=== PATIENT | male | born 2000 | race Caucasian/White ===

== ENCOUNTER 2021-06-13 03:38 | Observation (INO) ==
[2021-06-13] MEDS ORDERED: SODIUM CHLORIDE 0.9% 1000ML 1,000 ML IV ONE (04:03)
--- NOTE | 2021-06-13 04:08 | Emergency Department Note ---
Impression & Plan SSRI overdose, Suicide attempt, Alcohol intoxication ED Provider Note Name: IBRAHIMA EVANS Age: 20 Sex: M Arrives Via: Ambulance Informant: Patient, EMS ED Provider: Piyush Culp MD Chief Complaint: Suicide attempt Impression: Suicide Attempt SSRI Overdose Alcohol Intoxication Medical Decision Makin yr old male with history of depression. Patient with breakup this evening, intoxication and then attempted suicide with SSRI overdose (handful of Zoloft) early this morning. Had told friends farzad who came to his room and tried making him throw up. He sent [employer] texts to his father apparently as well. Workup unremarkable and on secured entrance monitor without issues. Given overdose and inability to medically clear a this time, hospitalist consulted for further management and monitoring. Prior Medical Record and Triage/Nursing Notes reviewed by Me Differentials:Mood disorder, infection, hypoglycemia, electrolyte abnormalities, cardiac sources, intracerebral event, toxicologic, trauma, neurologic, as well as other pathologies. Vital Signs: reviewed and remarkable for no significant abnormalities Interventions: NSS bolus Labs:Reviewed and remarkable for no significant abnormalities EKG:Per My Interpretation: Indication Overdose: NSR 75 bpm, qtc 393, qrs 92. No Ectopy. No Ischemia. No previous for comparison Cardiac/Tele Monitoring: Cardiac Monitoring: An Order was placed for continuous cardiac monitoring. The monitor shows a rate of 70 with a normal sinus rhythm. Consults:Dr Jimi PHILLIPS Hospitalist Plan: Disposition:Hospitalization. Condition: Good History of Present Illness:20 yr old male arrives for evaluation following an overdose. Admits he was feeling sad/depressed this evening after girlfriend broke up with him. He was drinking alcohol and at 2 am he took an entire bottle of his Zoloft. Notes there were enough pills to fill a pile in his hand. Denies other medications taken that he was aware of. Notes his roommates made him try throwing up. States he currently feels sleepy. Denies abdominal pain, chest pain, sob, palpitations, nor other symptoms. States he wanted to kill himself. Denies having thought like that previously. Denies previous suicide attempts nor psychiatric hospitalizations. He has a history of depression. Denies drug use. ROS: See above HPI for pertinent positives & negatives. A total of 10 systems reviewed and were otherwise negative. Past Medical History:Depression Past Surgical History:Appendectomy Family History:Father with Bipolar Social History:[employer] [facility] [employer], [employer], Occasional etoh, no drugs, no tobacco Home Medications:Zoloft Allergies:none Vitals:Blood Pressure: 104/76, Pulse 104, RR 20, T 36.8C, O2 95% on RA Physical Exam: GENERAL: Patient is sad/depressed appearing and in mild distress. Crying EYES: No scleral icterus, unremarkable pupils. ENT: Mucous membranes moist, no nasal congestion. NECK: No masses appreciated, nomeningismus, trachea is midline. RESPIRATORY: No dyspnea. Clear to auscultation and equal bilaterally. No wheeze, no rhonchi. CARDIOVASCULAR: Regular rate and rhythm.No murmurs, rubs, gallops appreciated. GASTROINTESTINAL: Abdomen soft, non-tender, no peritonitis.Bowel sounds positive.No masses appreciated. BACK: No midline tenderness, no CVA tenderness EXTREMITIES: Normal motion all extremities, no cyanosis, no edema. NEUROLOGIC: Mildly intoxicated, Alert and oriented, no acute motor or sensory deficits, no focal weakness, cranial nerves grossly intact. SKIN: No rash, no jaundice, no diaphoresis. PSYCH: sad, depressed, admits suicidal ideation and attempt GCS: 15 ED Course: Times/Reassessments: Stable, cardiac rhythm normal Piyush Culp MD Past Med/Surg History Social History Smoking Status: Never smoker Feels Safe at Home: No Home Meds Home Medications Medication Instructions Recorded Confirmed sertraline 50 mg tablet 50 mg PO DAILY 06/13/21 06/13/21 Results & Data (ED) Vital Signs Vital Signs - 24 hr 06/13/21 04:03 06/13/21 04:33 06/13/21 04:44 Temperature 36.8 C Temperature Source Oral Pulse Rate 71 Pulse Rate [Apical] Pulse Rhythm Regular Pulse Strength Normal Respiratory Rate 16 16 Respiratory Effort / Characteristics Non-Labored Spontaneous Non-Labored Spontaneous Respiratory Depth Normal Normal Respiratory Pattern Blood Pressure 135/79 Blood Pressure [Left Arm] Blood Pressure Mean 97 Blood Pressure Mean [Left Arm] Pulse Oximetry 98 96 98 Oxygen Delivery Method Room Air Room Air Room Air Sepsis Recent Fever Within 48 Hours No Sepsis New/Unexplained Change in Mental Status No Sepsis Action Taken by Nursing No Action Required 06/13/21 06:48 06/13/21 07:35 Temperature Temperature Source Pulse Rate Pulse Rate [Apical] 71 104 H Pulse Rhythm Pulse Strength Respiratory Rate 14 20 Respiratory Effort / Characteristics Non-Labored Spontaneous Non-Labored Spontaneous Respiratory Depth Normal Normal Respiratory Pattern Regular Blood Pressure Blood Pressure [Left Arm] 103/54 L 104/76 Blood Pressure Mean Blood Pressure Mean [Left Arm] 70 85 Pulse Oximetry 94 95 Oxygen Delivery Method Room Air Room Air Sepsis Recent Fever Within 48 Hours Sepsis New/Unexplained Change in Mental Status Sepsis Action Taken by Nursing Laboratory Data Result diagrams: 06/13/21 04:31 06/13/21 04:31 Lab Results 06/13/21 06/13/21 06/13/21 Range/Units 04:15 04:15 04:31 WBC 6.82 (4.8-10.8) K/uL RBC 4.57 L (4.7-6.1) M/uL Hgb 13.7 L (14.0-18.0) g/dL Hct 40.1 L (42-52) % MCV 87.7 (80-100) fL MCH 30.0 (25-34) pg MCHC 34.2 (32-36) g/dL RDW Std Deviation 41.5 (36.4-46.3) fL RDW Coeff of Yanira 13.0 (11.5-14.5) % Plt Count 301 (130-400) K/uL MPV 9.3 (7.4-10.4) fL Immature Gran % (Auto) 0.1 % Neut % (Auto) 71.2 % Lymph % (Auto) 21.4 % [place] % (Auto) 6.0 % Eos % (Auto) 1.2 % Baso % (Auto) 0.1 % Neut # (Auto) 4.85 (1.4-6.5) K/uL Lymph # (Auto) 1.46 (1.2-3.4) K/uL [place] # (Auto) 0.41 (0.11-0.59) K/uL Eos # (Auto) 0.08 (0-0.5) K/uL Baso # (Auto) 0.01 (0-0.2) K/uL Immature Gran # (Auto) 0.01 (0.00-0.02) K/uL Sodium (136-145) mmol/L Potassium (3.5-5.1) mmol/L Chloride (98-107) mmol/L Carbon Dioxide (21-32) mmol/L Anion Gap (3-11) BUN (7-18) mg/dl Creatinine (0.6-1.4) mg/dl Est Cr Clr Drug Dosing Est GFR ( Amer) ml/min Est GFR (Non-Af Amer) ml/min BUN/Creatinine Ratio (10-20) Glucose (70-99) mg/dl Calcium (8.5-10.1) mg/dl Magnesium (1.8-2.4) mg/dl Total Bilirubin (0.2-1) mg/dl AST (15-37) U/L ALT (12-78) U/L Alkaline Phosphatase (45-117) U/L Total Protein (6.4-8.2) gm/dl Albumin (3.4-5.0) gm/dl Globulin (2.5-4.0) gm/dl Albumin/Globulin Ratio (0.9-2) TSH (0.300-4.500) uIu/ml Salicylates (2.8-20) mg/dl Acetaminophen (10-30) ug/ml Ethyl Alcohol mg/dL (0-3) mg/dl COVID-19 Eval Order Covid19 at [facility] SARS-CoV-2 (PCR) NEGATIVE (Negative) 06/13/21 06/13/21 06/13/21 Range/Units 04:31 04:31 04:31 WBC (4.8-10.8) K/uL RBC (4.7-6.1) M/uL Hgb (14.0-18.0) g/dL Hct (42-52) % MCV (80-100) fL MCH (25-34) pg MCHC (32-36) g/dL RDW Std Deviation (36.4-46.3) fL RDW Coeff of Yanira (11.5-14.5) % Plt Count (130-400) K/uL MPV (7.4-10.4) fL Immature Gran % (Auto) % Neut % (Auto) % Lymph % (Auto) % [place] % (Auto) % Eos % (Auto) % Baso % (Auto) % Neut # (Auto) (1.4-6.5) K/uL Lymph # (Auto) (1.2-3.4) K/uL [place] # (Auto) (0.11-0.59) K/uL Eos # (Auto) (0-0.5) K/uL Baso # (Auto) (0-0.2) K/uL Immature Gran # (Auto) (0.00-0.02) K/uL Sodium 141 (136-145) mmol/L Potassium 3.5 (3.5-5.1) mmol/L Chloride 108 H (98-107) mmol/L Carbon Dioxide 28 (21-32) mmol/L Anion Gap 5.0 (3-11) BUN 9 (7-18) mg/dl Creatinine 0.78 (0.6-1.4) mg/dl Est Cr Clr Drug Dosing Not Reportable Est GFR ( Amer) > 150.0 ml/min Est GFR (Non-Af Amer) 129.9 ml/min BUN/Creatinine Ratio 11.2 (10-20) Glucose 100 H (70-99) mg/dl Calcium 8.5 (8.5-10.1) mg/dl Magnesium 1.8 (1.8-2.4) mg/dl Total Bilirubin 0.3 (0.2-1) mg/dl AST 16 (15-37) U/L ALT 20 (12-78) U/L Alkaline Phosphatase 69 (45-117) U/L Total Protein 7.3 (6.4-8.2) gm/dl Albumin 3.6 (3.4-5.0) gm/dl Globulin 3.7 (2.5-4.0) gm/dl Albumin/Globulin Ratio 1.0 (0.9-2) TSH 1.100 (0.300-4.500) uIu/ml Salicylates < 1.7 L (2.8-20) mg/dl Acetaminophen < 2 L (10-30) ug/ml Ethyl Alcohol mg/dL 118.0 H (0-3) mg/dl COVID-19 Eval Order SARS-CoV-2 (PCR) (Negative) Administered Medications Discontinued Medications Sodium Chloride (Nss 1000ml) 1,000 mls @ 999 mls/hr IV .Q1H1M ONE Stop: 06/13/21 05:03 Last Infusion: 06/13/21 05:19 Dose: 0 mls/hr Documented by: [id number] Admin: 06/13/21 04:16 Dose: 999 mls/hr Documented by: [id number] Discharge Plan Visit Data Chief Complaint: Overdose (Intentional) Stated Complaint: OVERDOSE ED Provider: Piyush Culp Discharge Problem: SSRI overdose, Suicide attempt, Alcohol intoxication Forms Stand Alone Forms: [facility], Suicide Prevention Resources Prescriptions Prescriptions: No Action sertraline 50 mg Tablet 50 mg PO DAILY RF: 0 Referrals Referrals: PCP,NO [Primary Care Provider] - Discharge Problem: SSRI overdose Qualifiers: Encounter type: initial encounter Injury intent: intentional self-harm Qualified Code(s): T43.222A - Poisoning by selective serotonin reuptake inhibitors, intentional self-harm, initial encounter Alcohol intoxication Qualifiers: Complication of substance-induced condition: uncomplicated Qualified Code(s): F10.920 - Alcohol use, unspecified with intoxication, uncomplicated
[2021-06-13 04:58] LABS: Basophils # (auto) 0.01 K/uL (0-0.2); Basophils % (auto) 0.1 %; Eosinophils # (auto) 0.08 K/uL (0-0.5); Eosinophils % (auto) 1.2 %; Hematocrit (blood only) 40.1 % (42-52); Hemoglobin 13.7 g/dL (14.0-18.0); Immature Granulocytes # (auto) 0.01 K/uL (0.00-0.02); Immature Granulocytes % (auto) 0.1 %; Lymphocytes # (auto) 1.46 K/uL (1.2-3.4); Lymphocytes % (auto) 21.4 %; Mean Corpuscular Hgb Conc 34.2 g/dL (32-36); Mean Corpuscular Volume 87.7 fL (80-100); Mean Platelet Volume 9.3 fL (7.4-10.4); Monocytes # (auto) 0.41 K/uL (0.11-0.59); Neutrophils # (auto) 4.85 K/uL (1.4-6.5); Neutrophils % (auto) 71.2 %; Platelet Count 301 K/uL (130-400); RDW Standard Deviation 41.5 fL (36.4-46.3); Red Blood Count 4.57 M/uL (4.7-6.1); White Blood Count 6.82 K/uL (4.8-10.8)
[2021-06-13 05:22] LABS: Acetaminophen < 2 ug/ml (10-30); Salicylate < 1.7 mg/dl (2.8-20)
[2021-06-13 05:26] LABS: Alanine Aminotransferase 20 U/L (12-78); Albumin Level 3.6 gm/dl (3.4-5.0); Aspartate Aminotransferase 16 U/L (15-37); BUN Creatinine Ratio 11.2 (10-20); Blood Urea Nitrogen 9 mg/dl (7-18); Calcium 8.5 mg/dl (8.5-10.1); Carbon Dioxide 28 mmol/L (21-32); Chloride 108 mmol/L (98-107); Est GFR (African American) > 150.0 ml/min; Est GFR (Non-African American) 129.9 ml/min; Glucose 100 mg/dl (70-99); Magnesium 1.8 mg/dl (1.8-2.4); Potassium 3.5 mmol/L (3.5-5.1); Sodium 141 mmol/L (136-145)
[2021-06-13 05:37] LABS: Alkaline Phosphatase 69 U/L (45-117); Bilirubin,Total 0.3 mg/dl (0.2-1); Globulin 3.7 gm/dl (2.5-4.0); Total Protein 7.3 gm/dl (6.4-8.2)
[2021-06-13] MEDS ORDERED: ONDANSETRON INJ 2 MG/ML 2 ML VIAL IV PRN (09:04)
[2021-06-13] MEDS ORDERED: ACETAMINOPHEN 325 MG TAB PO PRN (09:04)
[2021-06-13] MEDS: SODIUM CHLORIDE 0.9% 1000ML 1,000 ML IV SCH ×2 (11:13→18:40)
--- NOTE | 2021-06-13 15:54 | History & Physical Report ---
Date of Service June 13, 2021 Assessment & Plan (1) SSRI overdose: Plan: took a "handful" of sertraline, unknown number of tablets, they are 50mg tablets vitals stable, labs stable will keep on med tele for 24 hours, NSS at 125cc/hr x 2 bags repeat CMP and CBC in the morning typically this type of overdose is well tolerated and he should be medically clear tomorrow (2) Suicide attempt: Plan: he admits he was trying to harm himself, he has regret, currently he is not suicidal consult psychiatry for their evaluation and recommendation discussed with him and his father that he will be observed on medicine service today and overnight psychiatry will determine if he is safe to go home with family or if he needs to stay under 302 he is cooperative and willing to see psychiatry father is very supportive (3) Alcohol intoxication: Plan: alcohol was 118 on admission, should be out of his system by now (4) Depression: Plan: medicated with Zoloft 50mg daily currently has been dealing with stressors of classes, relationship with girlfriend that he broke off Admission and Anticipated Discharge Date Admission Date: June 13, 2021 History of Present Illness Chief Complaint: I took a handful of Zoloft Primary Care Provider: Self, 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 He is prescribed 50mg a day for depression. He is not sure how much he took, just knows it was a handful, he does not think it was the entire bottle. He says that he has been under a great deal of stress the past two weeks. 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 He recently broke up with his girlfriend which has also been stressful. He admits to drinking alcohol last night, says he stopped drinking about 3-4 hours prior to when he took the sertraline. He says he took the sertraline in an attempt to hurt himself, admits he was briefly suicidal. Immediately after he took them he states he had regret and he told his frater nity brothers and he contacted his father. His friends got him to the hospital. He has been stable here in the ED. His vitals have been normal. CMP and CBC were unremarkable. Ethyl alcohol was 118, tylenol and salicylates were low. He was given NSS. Will need medical observation and psychiatry consult. Currently he says he does not have any suicidal thoughts. His father is at the bedside. He admits to drinking alcohol frequently, socially. He admits to smoking marijuana. He does not smoke cigarettes and does not vape. Allergies Allergy/AdvReac Type Severity Reaction Status Date / Time No Known Allergies Allergy Verified 06/13/21 11:43 Home Medications Medication Instructions Recorded Confirmed Type sertraline 50 mg tablet 50 mg PO DAILY 06/13/21 06/13/21 History Past Med/Surg History Medical History (Updated 06/13/21 @ 15:49 by Jonathan Krause DO) Depression Surgical History (Updated 06/13/21 @ 15:49 by Jonathan Krause DO) S/P appendectomy Family History (Updated 06/13/21 @ 15:50 by Jonathan Krause DO) Other Hypertension Social History Smoking Status: Never smoker Feels Safe at Home: No Review of Systems Review of Systems: All systems reviewed & are unremarkable except as noted in Subjective Constitutional: no fever, no chills, no sweats, no fatigue and no weakness Eyes: no blind spots and no eye pain Ear, Nose, Mouth, Throat: no ear pain, no hearing loss and no nasal congestion Respiratory: no cough and no dyspnea Cardiovascular: no chest pain, no lightheadedness, no syncope and no edema Gastrointestinal: + abdominal pain (discomfort, epigastric, cramping); no nausea, no vomiting, no constipation and no diarrhea/loose stools Genitourinary: no dysuria Neurologic: no unsteadiness, no falls and no numbness Psychiatric: + depression, + suicidal ideation (early this morning, none currently), + anxiety and + substance abuse (alcohol, marijuana); no homicidal ideation Physical Exam Physical Exam: General: well developed, well nourished, no acute distress, slightly disheveled Neck: supple, trachea midline, normal thyroid Lungs: clear to auscultation bilaterally, normal respiratory effort, no accessory muscle use, no distress Heart: regular S1 and S2, no murmur, peripheral pulses normal, capillary refill normal, no edema Abdomen: soft, NT, ND, + BS, no hepatomegaly, normal to percussion Extremities: normal in appearance, no cyanosis, no petechiae, strength is 5/5 bilaterally Neuro: awake, cooperative, moves all extremities, no focal motor deficits, CN II-XII intact, sensation in extremities intact, normal speech Skin: warm, dry, no rash, normal turgor Psych: Awake, alert oriented x 3, good eye contact, speech is normal, depressed mood, flat affect Results & Data Results & Data ([facility]) Vital Signs (Past 12 Hours) Vital Signs Temp Pulse Pulse Resp BP BP Pulse Ox 06/13/21 15:00 72 17 129/71 94 06/13/21 14:30 54 L 16 120/65 94 06/13/21 14:00 58 L 18 127/68 94 06/13/21 13:30 58 L 17 118/72 94 06/13/21 13:00 62 18 116/69 94 06/13/21 12:30 60 19 109/66 94 06/13/21 12:00 82 21 118/75 95 06/13/21 11:32 63 18 128/75 95 06/13/21 11:01 84 17 95 06/13/21 10:30 62 19 116/63 94 06/13/21 10:00 75 17 126/65 94 06/13/21 09:30 89 17 134/60 92 06/13/21 09:21 115/60 96 06/13/21 07:35 104 H 20 104/76 95 06/13/21 06:48 78 71 18 103/54 L 103/54 L 95 06/13/21 04:44 16 98 06/13/21 04:33 96 06/13/21 04:03 36.8 C 71 16 135/79 98 06/13/21 03:43 62 19 135/79 91 Laboratory Results Laboratory Results - last 24 hr 06/13/21 06/13/21 06/13/21 04:15 04:15 04:31 WBC 6.82 RBC 4.57 L Hgb 13.7 L Hct 40.1 L MCV 87.7 MCH 30.0 MCHC 34.2 RDW Std Deviation 41.5 RDW Coeff of Yanira 13.0 Plt Count 301 MPV 9.3 Immature Gran % (Auto) 0.1 Neut % (Auto) 71.2 Lymph % (Auto) 21.4 [place] % (Auto) 6.0 Eos % (Auto) 1.2 Baso % (Auto) 0.1 Neut # (Auto) 4.85 Lymph # (Auto) 1.46 [place] # (Auto) 0.41 Eos # (Auto) 0.08 Baso # (Auto) 0.01 Immature Gran # (Auto) 0.01 Sodium Potassium Chloride Carbon Dioxide Anion Gap BUN Creatinine Est Cr Clr Drug Dosing Est GFR ( Amer) Est GFR (Non-Af Amer) BUN/Creatinine Ratio Glucose Calcium Magnesium Total Bilirubin AST ALT Alkaline Phosphatase Total Protein Albumin Globulin Albumin/Globulin Ratio TSH Salicylates Acetaminophen Ethyl Alcohol mg/dL COVID-19 Eval Order Covid19 at [facility] SARS-CoV-2 (PCR) NEGATIVE 06/13/21 06/13/21 06/13/21 04:31 04:31 04:31 WBC RBC Hgb Hct MCV MCH MCHC RDW Std Deviation RDW Coeff of Yanira Plt Count MPV Immature Gran % (Auto) Neut % (Auto) Lymph % (Auto) [place] % (Auto) Eos % (Auto) Baso % (Auto) Neut # (Auto) Lymph # (Auto) [place] # (Auto) Eos # (Auto) Baso # (Auto) Immature Gran # (Auto) Sodium 141 Potassium 3.5 Chloride 108 H Carbon Dioxide 28 Anion Gap 5.0 BUN 9 Creatinine 0.78 Est Cr Clr Drug Dosing Not Reportable Est GFR ( Amer) > 150.0 Est GFR (Non-Af Amer) 129.9 BUN/Creatinine Ratio 11.2 Glucose 100 H Calcium 8.5 Magnesium 1.8 Total Bilirubin 0.3 AST 16 ALT 20 Alkaline Phosphatase 69 Total Protein 7.3 Albumin 3.6 Globulin 3.7 Albumin/Globulin Ratio 1.0 TSH 1.100 Salicylates < 1.7 L Acetaminophen < 2 L Ethyl Alcohol mg/dL 118.0 H COVID-19 Eval Order SARS-CoV-2 (PCR) Medications Administered Current Inpatient Medications Acetaminophen (Acetaminophen 325 Mg Tab) 650 mg PO Q4H PRN PRN Reason: Pain or Fever Stop: 07/13/21 09:03 Sodium Chloride (Nss 1000ml) 1,000 mls @ 125 mls/hr IV .Q8H DAVID Stop: 06/14/21 01:03 Last Admin: 06/13/21 11:13 Dose: 125 mls/hr Documented by: Ondansetron HCl (Ondansetron Inj 2 Mg/Ml 2 Ml Vial) 4 mg IV Q6H PRN PRN Reason: Nausea Stop: 07/13/21 09:03 Code Status & VTE Plan VTE Prophylaxis Plan VTE Prophylaxis will be ordered: No PG Care Time/CCT Total # of Minutes Spent Total Time Spent with Patient: Total time spent is greater than 50% in coordination of care (as documented) at patient's floor/unit and/or counseling patient: Coding Level of Care Code INT OBSERVATION CARE 50M LVL 2 Diagnoses SSRI overdose T43.222A Encounter type: initial encounter Injury intent: intentional self-harm Suicide attempt T14.91XA Alcohol intoxication F10.920 Complication of substance-induced condition: uncomplicated Depression F32.A (1) SSRI overdose Encounter type: initial encounter Injury intent: intentional self-harm Qualified Code(s): T43.222A - Poisoning by selective serotonin reuptake inhibitors, intentional self-harm, initial encounter (2) Alcohol intoxication Complication of substance-induced condition: uncomplicated Qualified Code(s): F10.920 - Alcohol use, unspecified with intoxication, uncomplicated
--- NOTE | 2021-06-13 17:12 | Communication Note ---
Date of Service: June 13, 2021 Chart reviewed. Liaison will meet with patient this pm with formal psychiatric consultation by Dr. Ramirez in am. Patient ingested unknown amount of Zoloft while intoxicated as a suicide attempt. Clear gesture as reportedly sent goodbye messages. Vomited prior to coming to ED, no symptoms of serotonin syndrome noted in ED or Dr. Krause' assessment. There is a 302 petitioning statement on the chart from a roommate. Although currently denying SI, patient should remain on 1-on-1 suicide precautions. If he would attempt to leave the hospital AMA, the [facility] delegate should be notified to issue a warrant which would remain in place pending medical clearance. Inpatient psychiatric hospitalization will be likely recommendation and Dr. Ramirez can determine appropriateness for 201 vs 302 upon medical clearance.
[2021-06-14] MEDS ORDERED: FLUARIX QUADRIVALENT 0.5 ML SYR IM ONE (01:53)
[2021-06-14 03:46] LABS: Appearance Urine Clear (Clear); Bilirubin Urine Negative (Negative); Blood Urine Negative (Negative); Color Urine Yellow; Glucose Urine UA Negative (Negative); Ketones Urine Negative (Negative); Leukocyte Esterase Urine Negative (Negative); Nitrite Urine Negative (Negative); Protein Urine Negative (Negative); Specific Gravity Urine 1.019 (1.000-1.030); Urobilinogen Urine Negative (Negative); pH Urine 7.5 (4.5-7.5)
[2021-06-14 03:56] LABS: Amphetamines+Metham, Urine Neg (Neg); Barbiturates, Urine Neg (Neg); Benzodiazepine, Urine Neg (Neg); Cocaine, Urine Neg (Neg); MDMA (Ecstacy), Urine Neg (Neg); Methadone, Urine Neg (Neg); Opiate, Urine Neg (Neg); Phencyclidine, Urine Neg (Neg)
[2021-06-14 08:16] LABS: Hematocrit (blood only) 40.3 % (42-52); Hemoglobin 13.6 g/dL (14.0-18.0); Mean Corpuscular Hemoglobin 30.3 pg (25-34); Mean Corpuscular Hgb Conc 33.7 g/dL (32-36); Mean Corpuscular Volume 89.8 fL (80-100); Mean Platelet Volume 9.2 fL (7.4-10.4); Platelet Count 223 K/uL (130-400); RDW Standard Deviation 42.5 fL (36.4-46.3); Red Blood Count 4.49 M/uL (4.7-6.1); White Blood Count 5.98 K/uL (4.8-10.8)
[2021-06-14 08:50] LABS: Alanine Aminotransferase 18 U/L (12-78); Aspartate Aminotransferase 12 U/L (15-37); BUN Creatinine Ratio 8.8 (10-20); Blood Urea Nitrogen 7 mg/dl (7-18); Calcium 8.5 mg/dl (8.5-10.1); Carbon Dioxide 30 mmol/L (21-32); Chloride 107 mmol/L (98-107); Creatinine Clr Calc Pharmacy 134.6 ml/min; Est GFR (African American) > 150.0 ml/min; Est GFR (Non-African American) 129.9 ml/min; Glucose 87 mg/dl (70-99); Magnesium 2.1 mg/dl (1.8-2.4); Sodium 143 mmol/L (136-145)
[2021-06-14 08:53] LABS: Albumin Globulin Ratio 0.9 (0.9-2); Alkaline Phosphatase 67 U/L (45-117); Bilirubin,Total 0.7 mg/dl (0.2-1); Globulin 3.4 gm/dl (2.5-4.0); Total Protein 6.4 gm/dl (6.4-8.2)
--- NOTE | 2021-06-14 09:20 | Psychiatric Consultation ---
Date of Consultation June 14, 2021 Impression / Recommendations Impression The patient is a 20 year old with a history of MDD, anxiety who was admitted for suicide attempt via sertraline ingestion. Diagnostically consistent with MDD, recurrent episode which has been unresponsive to sertraline at current dose. Although he is no longer endorsing active SI he remains at high acute risk given recent attempt and ongoing major mood episode with hopelessness and no change in acute stressors or triggers to his attempt. Recommendation is for inpatient psychiatric treatment once medically clear which he would like to discuss with his parents. Given high acute risk he may not leave AMA without clearance from psychiatry and continues to require 1:1. (1) MDD (major depressive disorder), recurrent episode: (2) Suicide attempt: (3) SSRI overdose: Encounter type: initial encounter Injury intent: intentional self-harm Qualified Code(s): T43.222A - Poisoning by selective serotonin reuptake inhibitors, intentional self-harm, initial encounter -Continue 1:1 observation -May not leave AMA or without psychiatric clearance -Continue to hold sertraline -Will re-assess willingness for vol tx this afternoon -Liason nurse to get collateral from family and therapist -For behavioral emergency would offer: benadryl 50mg, haldol 5mg, ativan 2mg IM x 1 Risk Factors Assessment Male: Yes : Yes Do You Have Access To A Gun?: No Health Problems: No Mental Health Diagnoses: Yes Substance Use Disorders: No Previous Attempt: No Previous Psychiatric Hospitalization: No Hopelessness: Yes Psych History Identifying Data 20 yo man with history of depression admitted medically following a suicide attempt via ingestion of sertraline (unknown quantity, handful). Psychiatry consulted by Dr. Krause for risk assessment and disposition recommendations. Chief Complaint "I felt like I was drowning and couldn't come up for air". History of Present Illness Patient describes an impulsive suicide attempt on Tuesday in the context of two weeks of worsening depression. He had a prior history of depression in December 30 at which time his PCP started him on sertraline 50mg. His symptoms improved but over the last two weeks he began experiencing symptoms of depression again including hopelessness, helplessness, increased sleep, low energy, and difficulty concentrating. He attributes these symptoms to feeling overwhelmed by his college classes though also notes recent stressor of a breakup. He's been trying to meditate, does therapy and has been exercising to help manage his symptoms but it hasn't been helping. On Tuesday night he developed SI for the first time and then drank some alcohol and tried to sleep but woke up feeling even worse and then impulsively took a handful of sertraline. he wasn't sure what would happen and felt a bit disconnected. He notes feeling immediately regretful and then forcing himself to throw up and then unlocking his room and calling for help from his roommates who came to his aid and got him to the ED. Currently he denies SI but endorses ongoing depressive symptoms. He is glad to be alive. He would like to talk to his parents before making any decisions about psychiatric hospitalization. He worries that hospitalization would negatively impact his school work. Pertinent ROS: no history of wilfred, fam hx of BPAD in father and mother's sister, no significant substance use but drinks alcohol 2x/wk and marijuana 1x/wk, no current anxiety symptoms, no psychotic sx. Past Psychiatric History Previous Psych History: MDD with anxious features in December 2020 Outpatient Services: Therapist via teletherapy Timoteo Tse Previous Psych Admissions: none Do You Have Access To A Gun?: No History of Previous Suicide Attempt: No Past Medication Trials: none Allergies Allergy/AdvReac Type Severity Reaction Status Date / Time No Known Allergies Allergy Verified 06/13/21 11:43 Home Medications Medication Instructions Recorded Confirmed Type sertraline 50 mg tablet 50 mg PO DAILY 06/13/21 06/13/21 History Family History Father BPAD, depression, anxiety; maternal aunt with BPAD; no fam hx of suicide Substance Abuse History none see HPI above Personal History Living Arrangements: fraternity Highest Grade Completed: Some College Employment Status: Student Marital Status: Single Beliefs That Will Affect Care: None History of Legal Problems: none 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 [employer] Patient History Medical History Depression Surgical History S/P appendectomy Family History Other Hypertension Social History Smoking Status: Never smoker Hx Alcohol Use: Yes Hx Substance Use: Yes Last Used Substance: Unknown Preferred Language: Luxembourgish Communication Ability: Effective 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 Beliefs That Will Affect Care: None Current Living Situation: Other Current Living Situation Comment: roommates Feels Safe at Home: Yes Assistive Devices: None Physical Exam Psychiatric: Orientation: alert and oriented x 3 Apperance: appropriately dressed Eye Contact: good eye contact Motor Behavior: no abnormal motor movements Speech: normal rate/rhythm/volume of speech Affect: euthymic affect Mood: + depressed mood Thought Process: goal directed thought process Thought Content: reality based without delusions Suicidal Thoughts: denies suicidal thoughts Homicidal Thoughts: denies homicidal thoughts Hallucinations: no auditory hallucinations and no visual hallucinations Cognition: recent memory grossly intact, remote memory grossly intact, attention grossly intact and language grossly intact Estimated Intelligence: consistent with education level Insight: good insight Judgement: + fair judgement Vital Signs (Past 24 Hours): Last Vital Signs Temp 36.6 C 06/14/21 07:49 Pulse 65 06/14/21 07:49 Resp 14 06/14/21 07:49 BP 100/58 L 06/14/21 07:49 Pulse Ox 95 06/14/21 07:49 Review of Systems All systems reviewed & are unremarkable except as noted in HPI & below continues to have some GI discomfort Coding Level of Care Code 45062 Inpt Consult Level 2 Diagnoses MDD (major depressive disorder), recurrent episode F33.9 Suicide attempt T14.91XA SSRI overdose T43.222A Encounter type: initial encounter Injury intent: intentional self-harm
--- NOTE | 2021-06-14 15:22 | Hospitalist Progress Note ---
Date of Service June 14, 2021 Assessment & Plan (1) SSRI overdose: Plan: took a "handful" of sertraline, unknown number of tablets, they are 50mg tablets he vomited afterwards vitals stable, labs stable remove tele, medically stable plan to go to inpatient U tomorrow (2) Suicide attempt: Plan: he admits he was trying to harm himself, he has regret, currently he is not suicidal consult psychiatry for their evaluation and recommendation will plan for inpatient psychiatric treatment, he is agreeing to voluntary stay should have a bed tomorrow (3) Alcohol intoxication: Plan: alcohol was 118 on admission sober today (4) Depression: Plan: medicated with Zoloft 50mg daily currently has been dealing with stressors of classes, relationship with girlfriend that he broke off plan for inpatient psychiatric treatment Admission and Anticipated Discharge Date Admission Date: June 13, 2021 Subjective patient feels a lot better, very conversive, he is agreeing to inpatient psychiatric treatment they should have a bed tomorrow labs stable, eating well, no issues on tele, will change to medical status discussed with Dr. Ramirez Review of Systems Review of Systems: All systems reviewed & are unremarkable except as noted in Subjective Physical Exam Physical Exam: General: well developed, well nourished, no acute distress, slightly disheveled Neck: supple, trachea midline, normal thyroid Lungs: clear to auscultation bilaterally, normal respiratory effort, no accessory muscle use, no distress Heart: regular S1 and S2, no murmur, peripheral pulses normal, capillary refill normal, no edema Abdomen: soft, NT, ND, + BS, no hepatomegaly, normal to percussion Extremities: normal in appearance, no cyanosis, no petechiae, strength is 5/5 bilaterally Neuro: awake, cooperative, moves all extremities, no focal motor deficits, CN II-XII intact, sensation in extremities intact, normal speech Skin: warm, dry, no rash, normal turgor Psych: Awake, alert oriented x 3, good eye contact, speech is normal, euthymic mood Results & Data Results & Data ([facility]) Vital Signs (Past 12 Hours) Vital Signs Temp Pulse Pulse Resp BP Pulse Ox Pulse Ox 06/14/21 14:49 36.9 C 64 16 106/66 96 06/14/21 11:14 37.1 C 73 16 110/64 96 06/14/21 11:00 96 06/14/21 07:49 36.6 C 65 14 100/58 L 95 06/14/21 07:35 50 L Laboratory Results Laboratory Results - last 24 hr 06/14/21 06/14/21 06/14/21 03:10 03:10 03:10 WBC RBC Hgb Hct MCV MCH MCHC RDW Std Deviation RDW Coeff of Yanira Plt Count MPV Sodium Potassium Chloride Carbon Dioxide Anion Gap BUN Creatinine Est Cr Clr Drug Dosing Est GFR ( Amer) Est GFR (Non-Af Amer) BUN/Creatinine Ratio Glucose Calcium Magnesium Total Bilirubin AST ALT Alkaline Phosphatase Total Protein Albumin Globulin Albumin/Globulin Ratio Urine Color Yellow Urine Appearance Clear Urine pH 7.5 Ur Specific [place] 1.019 Urine Protein Negative Urine Glucose (UA) Negative Urine Ketones Negative Urine Blood Negative Urine Nitrite Negative Urine Bilirubin Negative Urine Urobilinogen Negative Ur Leukocyte Esterase Negative Urine Opiates Screen Neg Ur Methadone, Qual Neg Urine Barbiturates Neg Ur Phencyclidine (PCP) Neg U Amphetamin/Meth Scrn Neg MDMA (Ecstasy) Screen Neg U Benzodiazepines Scrn Neg Ur Cocaine Metabolite Neg U Marijuana (THC) Screen Pos H U Marijuana THC Carboxy Pending Drug Screen Comment Pending 06/14/21 06/14/21 08:05 08:05 WBC 5.98 RBC 4.49 L Hgb 13.6 L Hct 40.3 L MCV 89.8 MCH 30.3 MCHC 33.7 RDW Std Deviation 42.5 RDW Coeff of Yanira 13.0 Plt Count 223 MPV 9.2 Sodium 143 Potassium 4.0 Chloride 107 Carbon Dioxide 30 Anion Gap 7.0 BUN 7 Creatinine 0.78 Est Cr Clr Drug Dosing 134.6 Est GFR ( Amer) > 150.0 Est GFR (Non-Af Amer) 129.9 BUN/Creatinine Ratio 8.8 L Glucose 87 Calcium 8.5 Magnesium 2.1 Total Bilirubin 0.7 AST 12 L ALT 18 Alkaline Phosphatase 67 Total Protein 6.4 Albumin 3.0 L Globulin 3.4 Albumin/Globulin Ratio 0.9 Urine Color Urine Appearance Urine pH Ur Specific [place] Urine Protein Urine Glucose (UA) Urine Ketones Urine Blood Urine Nitrite Urine Bilirubin Urine Urobilinogen Ur Leukocyte Esterase Urine Opiates Screen Ur Methadone, Qual Urine Barbiturates Ur Phencyclidine (PCP) U Amphetamin/Meth Scrn MDMA (Ecstasy) Screen U Benzodiazepines Scrn Ur Cocaine Metabolite U Marijuana (THC) Screen U Marijuana THC Carboxy Drug Screen Comment Medications Administered Current Inpatient Medications Acetaminophen (Acetaminophen 325 Mg Tab) 650 mg PO Q4H PRN PRN Reason: Pain or Fever Stop: 07/13/21 09:03 Ondansetron HCl (Ondansetron Inj 2 Mg/Ml 2 Ml Vial) 4 mg IV Q6H PRN PRN Reason: Nausea Stop: 07/13/21 09:03 PG Care Time/CCT Total # of Minutes Spent Total Time Spent with Patient: Total time spent is greater than 50% in coordination of care (as documented) at patient's floor/unit and/or counseling patient: Coding Level of Care Code 47397 Subseq Hosp Care Lvl 2 Diagnoses SSRI overdose T43.222A Encounter type: initial encounter Injury intent: intentional self-harm Suicide attempt T14.91XA Alcohol intoxication F10.920 Complication of substance-induced condition: uncomplicated Depression F32.A (1) SSRI overdose Encounter type: initial encounter Injury intent: intentional self-harm Qualified Code(s): T43.222A - Poisoning by selective serotonin reuptake inhibitors, intentional self-harm, initial encounter (2) Alcohol intoxication Complication of substance-induced condition: uncomplicated Qualified Code(s): F10.920 - Alcohol use, unspecified with intoxication, uncomplicated
--- NOTE | 2021-06-14 19:29 | Electrocardiogram Report ---
Test Reason : Blood Pressure : / mmHG Vent. Rate : 075 BPM Atrial Rate : 075 BPM P-R Int : 134 ms QRS Dur : 092 ms QT Int : 352 ms P-R-T Axes : 065 071 041 degrees QTc Int : 393 ms Normal sinus rhythm with sinus arrhythmia Normal ECG No previous ECGs available Confirmed by Anton Alexander ([id number]) on 06/14/2021 7:29:20 PM Referred By: REFERRED SELF Confirmed By:Anton Alexander
[2021-06-15] MEDS ORDERED: DICLOFENAC SOD 1% GEL 100 GM TUBE EXT SCH (13:35)
--- NOTE | 2021-06-15 15:11 | Discharge Summary ---
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 He is prescribed 50mg a day for depression. He is not sure how much he took, just knows it was a handful, he does not think it was the entire bottle. He says that he has been under a great deal of stress the past two weeks. 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 He recently broke up with his girlfriend which has also been stressful. He admits to drinking alcohol last night, says he stopped drinking about 3-4 hours prior to when he took the sertraline. He says he took the sertraline in an attempt to hurt himself, admits he was briefly suicidal. Immediately after he took them he states he had regret and he told his fraternity brothers and he contacted his father. His friends got him to the hospital. He has been stable here in the ED. His vitals have been normal. CMP and CBC were unremarkable. Ethyl alcohol was 118, tylenol and salicylates were low. He was given NSS. Will need medical observation and psychiatry consult. Currently he says he does not have any suicidal thoughts. His father is at the bedside. He admits to drinking alcohol frequently, socially. He admits to smoking marijuana. He does not smoke cigarettes and does not vape. Principal Diagnosis Suicide attempt by way of SSRI ingestion Major depression Polysubstance use (alcohol, THC) Discharge Exam Gen: NAD Mouth: MMM Heart: RRR, s1 s2, no murmur Lungs: CTA B/l Abd: soft, NT, ND, BS+ Ext: no edema Psych: a/o x 3, affect restricted Neuro: no tremor Skin: no diaphoresis Discharge Data Allergies Allergy/AdvReac Type Severity Reaction Status Date / Time No Known Allergies Allergy Verified 06/13/21 11:43 Consultations Psychiatry Behavioral Health [facility] Course (1) SSRI overdose: Following admission the patient's vital signs and labs remained stable. Telemetry was normal. He never had evidence of Serotonin Syndrome. He was seen by psychiatry who advised hospitalization in the mental health unit for his major depression. He was transferred from the acute care hospital side to the behavioral health unit. (2) Suicide attempt: Patient was admitted to the behavioral health unit voluntarily after medical clearance. (3) Alcohol intoxication: Will need alcohol counseling while in the behavioral health unit. (4) Depression: MDD. Total Time Total Time Spent Total Time Spent (In Minutes): 20 Discharge Plan Discharge Items Patient Disposition: Transfer Behavioral Health Fac Reason For Visit: SSRI OVERDOSE Discharge Diagnosis: 1. SSRI overdose 2. Suicidal ideation 3. Major Depresssion Activity: Resume your previous activity Non-emergency contact: Primary Care Provider and Psychiatrist Call non-emergency contact if: you have any medication questions and your symptoms worsen Follow-up/Referrals: SELF,REFERRED [Primary Care Provider] - Diet: Regular Addtl Attending Provider Instructions: Further instructions to follow once released from the psychiatric unit at [facility]. From a medical standpoint you have done well following the overdose. We did not see any symptoms or signs of excess serotonin in your body. Your vital signs and labs remained stable. Please continue to feel better! -Dr Petersen Pending Studies at Discharge: No Stand-Alone Forms: My [facility] Medications and DC Order Prescriptions: Discontinued sertraline 50 mg Tablet 50 mg PO DAILY RF: 0 No Action sertraline 50 mg Tablet 25 mg PO HS 30 Days Qty: 15 RF: 0 bupropion HCl 150 mg Tablet Extended Release 24 Hr 150 mg PO QAM 30 Days Qty: 30 RF: 0 Discharge Orders: Discharge Order (Routine); Ordered 06/15/21 Ordered By: Fortino Petersen Admission Data Admit Date/Time: 06/13/21 08:49 Attending Provider: Fortino Petersen Admit Provider: Jonathan Krause Primary Care Provider: SELF,REFERRED Other Providers: Jonathan Krause ; Kirsten Ramirez ; Cinda Pathak ; Shazia Harris ; Torsten Charles Other Interventions: Discharge Summary Assessment (RN) Last Done: 06/15/21 15:23 Coding Level of Care Code D/C DAY MANAGEMENT <30 MINS Diagnoses SSRI overdose T43.222A Encounter type: initial encounter Injury intent: intentional self-harm Suicide attempt T14.91XA Alcohol intoxication F10.920 Complication of substance-induced condition: uncomplicated Depression F32.A
[2021-06-17 10:12] LABS: Marijuana Quant, GCMS Urine 116 ng/mL (<5)
== END 2021-06-15 15:59 ==
LOC: EDINP 03:38 → ED 03:38 → 2N 20:01 → SUATTDRO 06-14 15:22 → 3N 06-15 02:09

== ENCOUNTER 2021-06-15 15:15 | Inpatient (IN) ==
[2021-06-15] MEDS ORDERED: hydrOXYzine HCl 25 MG TAB PO PRN ×2 (15:28)
[2021-06-15] MEDS ORDERED: SODIUM CHLORIDE 0.65% NA SOLN 45 ML (OCEAN) PRN (15:28)
[2021-06-15] MEDS ORDERED: ACETAMINOPHEN 325 MG TAB PO PRN (15:28)
[2021-06-15] MEDS ORDERED: BISMUTH SUBSALICYLATE LIQD 236 ML PO PRN (15:28)
[2021-06-15] MEDS ORDERED: MAGNESIUM HYDROXIDE SUSP 30 ML UDC PO PRN (15:28)
[2021-06-15] MEDS ORDERED: ALUMINUM/MAGNESIUM SUSP 30 ML UDC PO PRN (15:28)
[2021-06-15] MEDS ORDERED: MELATONIN 3 MG TAB PO PRN (16:45)
[2021-06-15] MEDS ORDERED: DICLOFENAC SOD 1% GEL 100 GM TUBE EXT PRN (17:23)
--- NOTE | 2021-06-16 10:37 | History & Physical ---
Date of Service June 16, 2021 Psychiatric History Identifying Data IBRAHIMA EVANS is a 20-year-old M who currently lives in [] [alone] with [], has a history of [], and was admitted on 06/15/21 15:28 on a [201 voluntary] [302 involuntary] commitment for []. Chief Complaint "[]". Past Psychiatric History Current Psychiatric Diagnosis: MDD Allergies Allergy/AdvReac Type Severity Reaction Status Date / Time No Known Allergies Allergy Verified 06/13/21 11:43 Family History Family History of: Depression, Anxiety and Bipolar Family Mental Health History Comment: Father- Bipolar/ anxiety Alcohol History Hx of Alcohol Use Over the Past 12 Months: Yes AUDIT Total Score: 5 Smoking Use Have You Smoked or Used Tobacco Products in the Last 30 Days: No Smoking Status: Never smoker Substance History Hx of Prescription Med Misuse Over the Past 12 Months: Yes (Suicide attempt with Zoloft) Hx of Over the Counter Med Misuse Over the Past 12 Months: No Hx of Inhalent Misuse Over the Past 12 Months: No Hx of Organic Substance Use Over the Past 12 Months: Yes (Maijuana) Hx of Illegal Substances/Street Drug Use Over Past 12 Months: No Problems as a Result of Past Substance Use: None Identified Personal History Highest Grade Completed: College Beliefs That Will Affect Care: None Patient History Medical History Depression Surgical History S/P appendectomy Family History Other Hypertension Social History Smoking Status: Never smoker Hx Alcohol Use: Yes Hx Substance Use: Yes Last Used Substance: Unknown Preferred Language: Puerto Rican Communication Ability: Effective Contracts Attorney Required: No Beliefs That Will Affect Care: None Current Living Situation: Other Current Living Situation Comment: roommates Feels Safe at Home: Yes Assistive Devices: None Physical Exam Vital Signs (Past 24 Hours): Last Vital Signs Temp 36.5 C 06/16/21 06:53 Pulse 70 06/16/21 06:54 Resp 16 06/16/21 06:53 BP 98/64 L 06/16/21 06:54 Results & Data ([facility]) Current Inpatient Medications Current Inpatient Medications: Current Inpatient Medications Acetaminophen (Acetaminophen 325 Mg Tab) 650 mg PO Q4H PRN PRN Reason: Headache or Minor Fever Stop: 07/15/21 15:27 Al Hydrox/Mg Hydrox/Simethicone (Aluminum/Magnesium Susp 30 Ml Udc) 30 ml PO Q4H PRN PRN Reason: GI Upset Stop: 07/15/21 15:27 Bismuth Subsalicylate (Bismuth Subsalicylate Liqd 236 Ml) 15 ml PO PRN PRN PRN Reason: Loose Stool Stop: 07/15/21 15:27 Diclofenac Sodium (Diclofenac Sod 1% Gel 100 Gm Tube) 4 gm EXT QID PRN PRN Reason: As Needed for Fever or Pain Stop: 07/15/21 20:59 Hydroxyzine HCl (Hydroxyzine Hcl 25 Mg Tab) 50 mg PO HSZ PRN PRN Reason: Insomnia Stop: 07/15/21 15:27 Hydroxyzine HCl (Hydroxyzine Hcl 25 Mg Tab) 25 mg PO Q4H PRN PRN Reason: Anxiety Stop: 07/15/21 15:27 Magnesium Hydroxide (Magnesium Hydroxide Susp 30 Ml Udc) 30 ml PO DAILY PRN PRN Reason: Constipation Stop: 07/15/21 15:27 Melatonin (Melatonin 3 Mg Tab) 3 mg PO HS PRN PRN Reason: Sleep Stop: 07/15/21 16:44 Sodium Chloride (Sodium Chloride 0.65% Na Soln 45 Ml ([place])) 1 - 2 sprays NA PRN PRN PRN Reason: Nasal Dryness/Congestion Stop: 07/15/21 15:27
--- NOTE | 2021-06-16 11:17 | History & Physical ---
Date of Service June 16, 2021 Impression / Recommendations Impression The patient is a 20 year old with a history of depression and anxiety who was admitted for a suicide attempt and worsening depression. Diagnostically consistent with MDD. He feels anxiety has been well controlled on sertraline so though we wouldn't typically re-start the same medication after an overdose he would like to continue to take sertraline since it has been so helpful for anxiety. Discussed risks, benefits, alternatives including black box warning for suicide and need to seek emergent care should this occur as an outpatient and to notify nursing if it occurs while in the hospital. Also discussed Wellbutrin which he would like to start including cardiac risks (no personal or family cardiac hx). Acute risk is high given recent suicide attempt, depression, and anxiety. The patient is deemed unstable and requires psychiatric hospitalization for diagnostic clarification, safety and stabilization, medication management and development of further coping skills. (1) MDD (major depressive disorder), recurrent episode: (2) Suicide attempt: 06/16/2021--Restart sertraline 25 mg qhs for LAUREL and MDD, pt consented. Consider addition of Wellbutrin XL 150 mg qAM for MDD (pt consented but would like me to speak with his family as well-called and left voicemail message for his mother to call back, ROIs for all parents signed by pt). Encourage continuing to meditate and consider ways to reduce stresses of coursework. 06/15/2021--The patient was admitted to the [facility] ([facility] mental health unit) on q15 min checks (behavioral with suicide precautions) for safety. The patient will participate in group, recreational, and milieu therapies and will be offered additional individual and family sessions as clinically appropriate. Inventory Assets Strengths: supportive family, engaged in outpt tx Needs: ideally psychiatrist, reduction in school stress Risk Factors Assessment Male: Yes : Yes Do You Have Access To A Gun?: No Health Problems: No Mental Health Diagnoses: Yes Substance Use Disorders: No Previous Attempt: Yes Family History of Suicide: No Previous Psychiatric Hospitalization: No Hopelessness: No Smoker: No Protective Factors Assessment Stable Relationships: Yes Supportive Family: Yes Good Rapport with Provider: Yes Psychiatric History Identifying Data SUNNY EVANS is a 20-year-old man who currently lives in a fraternity house at [employer] [facility], has a history of depression and anxiety, and was admitted on 06/15/21 15:28 on a 201 voluntary commitment following a brief medical admission for intentional ingestion of sertraline and alcohol. Chief Complaint "I've had a lot of time to think about what lead to this attempt and what I'd do differently next time". History of Present Illness Sunny presents for admission following suicide attempt via overdose of sertraline and alcohol. He is known to this author from seeing him for psychiatric consultation during his medical admission. Today he re-summarizes the events leading to his attempt and admission. For the last two weeks he experienced worsening fatigue, low energy, decreased conc entration, low mood and high stress which he attributes to his coursework. Notes that the transition back to in-person classes and exams has been very stressful and overwhelming as exams as closed books and require more memorization and different learning style which has been difficult to adapt to. He struggled with a big exam on Tuesday and reached out to this therapist to schedule an earlier appointment (for today 06/16) as well as tried to meditate and exercise but he still felt overwhelmed. 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 On Tuesday he experienced SI for the first time (he denies feeling suicidal earlier in the week and this leading him to break up with his girlfriend as collateral information had suggested) and tried to go to sleep but then awoke still feeling overwhelmed and then took sertraline with alcohol in an attempt to . He immediately regretted it, sought help, and since that time states he continues to feel "glad to be alive" and feels he has many things to live for including himself, friends and family. Continues to deny current depressive symptoms or SI though has had a lot of time to sleep. Has been journaling about what lead to the attempt, ways to reduce school work burden and ways to increase time for leisure, exercise and meditation as these have all helped him in the past. Pertinent ROS: negative for hx of wilfred, neg for hx psychosis, neg hx of OCD, hx anxiety which sertraline has worked well for, substance use 2x per week alcohol of 2-3 drinks and recreational marijuana use. Past Psychiatric History Previous Psych History: depression, anxiety Current Psychiatric Diagnosis: MDD Outpatient Services: therapist through teletherapy Timoteo Tse (had been seeing weekly but transitioned to every 3 weeks due to doing well over the summer and initially with start of ) Previous Psych Admissions: none Do You Have Access To A Gun?: No History of Previous Suicide Attempt: No Past Medication Trials: none Allergies Allergy/AdvReac Type Severity Reaction Status Date / Time No Known Allergies Allergy Verified 06/13/21 11:43 Family History Family History of: Depression, Anxiety and Bipolar Family Mental Health History Comment: Father- Bipolar/ anxiety Alcohol History Hx of Alcohol Use Over the Past 12 Months: Yes AUDIT Total Score: 5 Smoking Use Have You Smoked or Used Tobacco Products in the Last 30 Days: No Smoking Status: Never smoker Substance History Hx of Prescription Med Misuse Over the Past 12 Months: Yes (Suicide attempt with Zoloft) Hx of Over the Counter Med Misuse Over the Past 12 Months: No Hx of Inhalent Misuse Over the Past 12 Months: No Hx of Organic Substance Use Over the Past 12 Months: Yes (Maijuana) Hx of Illegal Substances/Street Drug Use Over Past 12 Months: No Problems as a Result of Past Substance Use: None Identified Personal History Living Arrangements: [employer] Highest Grade Completed: College Marital Status: Single Beliefs That Will Affect Care: None Hx Legal Problems: No Hx Traumatic Life Events: No Additional Comments: [employer] in [facility] [place] Patient History Medical History (Updated 06/16/21 @ 11:26 by Kirsten Ramirez MD) Anxiety Depression Surgical History S/P appendectomy Family History Other Hypertension Social History Smoking Status: Never smoker Hx Alcohol Use: Yes Hx Substance Use: Yes Last Used Substance: Unknown Preferred Language: Bulgarian Communication Ability: Effective House Wirer Helper Required: No Beliefs That Will Affect Care: None Current Living Situation: Other Current Living Situation Comment: roommates Feels Safe at Home: Yes Assistive Devices: None Review of Systems Review of Systems: All systems reviewed & are unremarkable except as noted in HPI & below mild rib pain that occurred while admitted to medicine that he spoke with provider about. States the topical cream they prescribed has been helping. Physical Exam Psychiatric: Orientation: alert and oriented x 3 Apperance: appropriately dressed Eye Contact: good eye contact Motor Behavior: steady gait and station and no abnormal motor movements Speech: normal rate/rhythm/volume of speech Affect: euthymic affect Mood: + anxious mood Thought Process: goal directed thought process Thought Content: reality based without delusions Suicidal Thoughts: denies suicidal thoughts Homicidal Thoughts: denies homicidal thoughts Hallucinations: no auditory hallucinations and no visual hallucinations Cognition: recent memory grossly intact, remote memory grossly intact, attention grossly intact and language grossly intact Estimated Intelligence: consistent with education level Insight: good insight Judgement: + fair judgement Vital Signs (Past 24 Hours): Last Vital Signs Temp 36.5 C 06/16/21 06:53 Pulse 70 06/16/21 06:54 Resp 16 06/16/21 06:53 BP 98/64 L 06/16/21 06:54 Exam Statement: A physical exam was performed on the medical floor by Dr. Krause for the purposes of medical clearance. I accept that physical as correct and adequate for the purposes of the inpatient physical exam. Results & Data ([facility]) Current Inpatient Medications Current Inpatient Medications: Current Inpatient Medications Acetaminophen (Acetaminophen 325 Mg Tab) 650 mg PO Q4H PRN PRN Reason: Headache or Minor Fever Stop: 07/15/21 15:27 Al Hydrox/Mg Hydrox/Simethicone (Aluminum/Magnesium Susp 30 Ml Udc) 30 ml PO Q4H PRN PRN Reason: GI Upset Stop: 07/15/21 15:27 Bismuth Subsalicylate (Bismuth Subsalicylate Liqd 236 Ml) 15 ml PO PRN PRN PRN Reason: Loose Stool Stop: 07/15/21 15:27 Diclofenac Sodium (Diclofenac Sod 1% Gel 100 Gm Tube) 4 gm EXT QID PRN PRN Reason: As Needed for Fever or Pain Stop: 07/15/21 20:59 Hydroxyzine HCl (Hydroxyzine Hcl 25 Mg Tab) 50 mg PO HSZ PRN PRN Reason: Insomnia Stop: 07/15/21 15:27 Hydroxyzine HCl (Hydroxyzine Hcl 25 Mg Tab) 25 mg PO Q4H PRN PRN Reason: Anxiety Stop: 07/15/21 15:27 Magnesium Hydroxide (Magnesium Hydroxide Susp 30 Ml Udc) 30 ml PO DAILY PRN PRN Reason: Constipation Stop: 07/15/21 15:27 Melatonin (Melatonin 3 Mg Tab) 3 mg PO HS PRN PRN Reason: Sleep Stop: 07/15/21 16:44 Sodium Chloride (Sodium Chloride 0.65% Na Soln 45 Ml ([place])) 1 - 2 sprays NA PRN PRN PRN Reason: Nasal Dryness/Congestion Stop: 07/15/21 15:27
[2021-06-16] MEDS: SERTRALINE HCL 50 MG TABLET PO SCH (20:55)
[2021-06-17] MEDS: buPROPion XL 150 MG TABCR PO SCH (09:12)
--- NOTE | 2021-06-17 16:42 | Psychiatric Progress Note ---
Date of Service June 17, 2021 Impression / Recommendations Impression The patient is a 20 year old with a history of depression and anxiety who was admitted for a suicide attempt and worsening depression. Diagnostically consistent with MDD. Acute risk is high given recent suicide attempt, depression, and anxiety. The patient is deemed unstable and requires psychiatric hospitalization for diagnostic clarification, safety and stabilization, medication management and development of further coping skills. Adjusting well to psychiatric hospitalization and engaged in groups and gaining insight into factors that lead to his attempt. Restarted sertraline and Wellbutrin which he is tolerating well. (1) MDD (major depressive disorder), recurrent episode: (2) Suicide attempt: 06/17/2021--Continue with sertraline 25 mg qd and Wellbutrin 150 mg XL. Spoke with Sunny's mother via phone yesterday who noted observing that sertraline 50mg seemed to take away almost too much anxiety to the point where he wasn't as motivated to do things. Discussed this also with Sunny with plan to keep sertraline at 25mg qd for at least 2 weeks especially since Wellbutrin was added for augmentation and see if this keeps anxiety well controlled but also he lps with motivation. 06/16/2021--Restart sertraline 25 mg qhs for LAUREL and MDD, pt consented. Consider addition of Wellbutrin XL 150 mg qAM for MDD (pt consented but would like me to speak with his family as well-called and left voicemail message for his mother to call back, ROIs for all parents signed by pt). Encourage continuing to meditate and consider ways to reduce stresses of coursework. 06/15/2021--The patient was admitted to the [facility] ([facility] mental health unit) on q15 min checks (behavioral with suicide precautions) for safety. The patient will participate in group, recreational, and milieu therapies and will be offered additional individual and family sessions as clinically appropriate. Risk Factors Assessment Male: Yes : Yes Do You Have Access To A Gun?: No Health Problems: No Mental Health Diagnoses: Yes Substance Use Disorders: No Previous Attempt: Yes Family History of Suicide: No Previous Psychiatric Hospitalization: No Hopelessness: No Smoker: No Protective Factors Assessment Stable Relationships: Yes Supportive Family: Yes Good Rapport with Provider: Yes Interval History Identifying Information The patient is a 20 year old with a history of depression and anxiety who was admitted for a suicide attempt and worsening depression. Chief Complaint "I'm great". Review of Systems Sleep Information Total Hours of Sleep: 7.25 Meal Information Percent Meal Consumed - Breakfast: 100 Percent Meal Consumed - Lunch: 100 Percent Meal Consumed - Dinner: 100 Subjective Subjective Chart and events of last 24 hours reviewed and discussed with multidisciplinary treatment team including nursing and social work. No acute events reported overnight. Slept well. Eating well. Attending groups. Adherent with medications. They report stable mood and no reported side effects from their medication. No activation from the Wellbutrin. Notes that after considering and journaling all the factors that lead to his hospitalization he feels like it was spurred because he failed one of his big exams earlier in the week and "this was my first experience of failure". He reflects that he has very high expectations for himself and wants to continue working on this in therapy and in groups. Spent more than 20 minutes in the care and coordination of this patient of which greater than 50% was dedicated to counseling and coordination of care. Physical Exam Psychiatric Orientation: alert and oriented x 3 Apperance: appropriately dressed Eye Contact: good eye contact Motor Behavior: steady gait and station and no abnormal motor movements Speech: normal rate/rhythm/volume of speech Affect: euthymic affect Mood: + anxious mood Thought Process: goal directed thought process Thought Content: reality based without delusions Suicidal Thoughts: denies suicidal thoughts Homicidal Thoughts: denies homicidal thoughts Hallucinations: no auditory hallucinations and no visual hallucinations Cognition: recent memory grossly intact, remote memory grossly intact, attention grossly intact and language grossly intact Estimated Intelligence: consistent with education level Insight: good insight Judgement: + fair judgement Vital Signs (Past 24 Hours) Last Vital Signs Temp 36.5 C 06/17/21 06:00 Pulse 52 L 06/17/21 06:50 Resp 16 06/17/21 06:00 BP 100/56 L 06/17/21 06:50 Results & Data ([facility]) Current Inpatient Medications Current Inpatient Medications: Current Inpatient Medications Acetaminophen (Acetaminophen 325 Mg Tab) 650 mg PO Q4H PRN PRN Reason: Headache or Minor Fever Stop: 07/15/21 15:27 Al Hydrox/Mg Hydrox/Simethicone (Aluminum/Magnesium Susp 30 Ml Udc) 30 ml PO Q4H PRN PRN Reason: GI Upset Stop: 07/15/21 15:27 Bismuth Subsalicylate (Bismuth Subsalicylate Liqd 236 Ml) 15 ml PO PRN PRN PRN Reason: Loose Stool Stop: 07/15/21 15:27 Bupropion HCl (Bupropion Xl 150 Mg Tabcr) 150 mg PO QAM DAVID Stop: 07/17/21 08:59 Last Admin: 06/17/21 09:12 Dose: 150 mg Documented by: Diclofenac Sodium (Diclofenac Sod 1% Gel 100 Gm Tube) 4 gm EXT QID PRN PRN Reason: As Needed for Fever or Pain Stop: 07/15/21 20:59 Hydroxyzine HCl (Hydroxyzine Hcl 25 Mg Tab) 50 mg PO HSZ PRN PRN Reason: Insomnia Stop: 07/15/21 15:27 Hydroxyzine HCl (Hydroxyzine Hcl 25 Mg Tab) 25 mg PO Q4H PRN PRN Reason: Anxiety Stop: 07/15/21 15:27 Magnesium Hydroxide (Magnesium Hydroxide Susp 30 Ml Udc) 30 ml PO DAILY PRN PRN Reason: Constipation Stop: 07/15/21 15:27 Melatonin (Melatonin 3 Mg Tab) 3 mg PO HS PRN PRN Reason: Sleep Stop: 07/15/21 16:44 Sertraline HCl (Sertraline Hcl 50 Mg Tablet) 25 mg PO HS DAVID Stop: 07/16/21 21:59 Last Admin: 06/16/21 20:55 Dose: 25 mg Documented by: Sodium Chloride (Sodium Chloride 0.65% Na Soln 45 Ml ([place])) 1 - 2 sprays NA PRN PRN PRN Reason: Nasal Dryness/Congestion Stop: 07/15/21 15:27 Mental Health & Subst Abuse Tx Therapist Name of Therapist: Timoteo Tse Post Discharge Appointments Primary Care Physician Name Of Family Doctor: Lavell Hoyt
[2021-06-17] MEDS: SERTRALINE HCL 50 MG TABLET PO SCH (21:21)
[2021-06-18] MEDS: buPROPion XL 150 MG TABCR PO SCH (08:13)
--- NOTE | 2021-06-18 15:05 | Psychiatric Progress Note ---
Date of Service June 18, 2021 Impression / Recommendations Impression The patient is a 20 year old with a history of depression and anxiety who was admitted for a suicide attempt and worsening depression. Diagnostically consistent with MDD. Acute risk is high given recent suicide attempt, depression, and anxiety. The patient is deemed unstable and requires psychiatric hospitalization for diagnostic clarification, safety and stabilization, medication management and development of further coping skills. Continues to show stable progress with improving mood, anxiety and no SI. (1) MDD (major depressive disorder), recurrent episode: (2) Suicide attempt: 06/18/2021--Tolerating sertraline and Wellbutrin well without any side effects. Discussed coping skills he plans to use moving forward and ways he plans to reduce some of the academic pressures and stress. 06/17/2021--Continue with sertraline 25 mg qd and Wellbutrin 150 mg XL. Spoke with Sunny's mother via phone yesterday who noted observing that sertraline 50mg seemed to take away almost too much anxiety to the point where he wasn't as motivated to do things. Discussed this also with Sunny with plan to keep sertraline at 25mg qd for at least 2 weeks especially since Wellbutrin was added for augmentation and see if this keeps anxiety well controlled but also helps with motivation. 06/16/2021--Restart sertraline 25 mg qhs for LAUREL and MDD, pt consented. Consider addition of Wellbutrin XL 150 mg qAM for MDD (pt consented but would like me to speak with his family as well-called and left voicemail message for his mother to call back, ROIs for all parents signed by pt). Encourage continuing to meditate and consider ways to reduce stresses of coursework. 06/15/2021--The patient was admitted to the [facility]) on q15 min checks (behavioral with suicide precautions) for safety. The patient will participate in group, recreational, and milieu therapies and will be offered additional individual and family sessions as clinically approp emmie. Risk Factors Assessment Male: Yes : Yes Do You Have Access To A Gun?: No Health Problems: No Mental Health Diagnoses: Yes Substance Use Disorders: No Previous Attempt: Yes Family History of Suicide: No Previous Psychiatric Hospitalization: No Hopelessness: No Smoker: No Protective Factors Assessment Stable Relationships: Yes Supportive Family: Yes Good Rapport with Provider: Yes Interval History Identifying Information The patient is a 20 year old with a history of depression and anxiety who was admitted for a suicide attempt and worsening depression. Chief Complaint "I feel good today". Review of Systems Sleep Information Total Hours of Sleep: 6.75 Meal Information Percent Meal Consumed - Breakfast: 100 Percent Meal Consumed - Lunch: 100 Percent Meal Consumed - Dinner: 100 Subjective Subjective Chart and events of last 24 hours reviewed and discussed with multidisciplinary treatment team including nursing and social work. No acute events reported overnight. Slept well. Eating well. Attending groups. Adherent with medications. He reports good mood and continues to tolerate the sertraline and Wellbutrin well without any side effects. Discussed his safety plan which he completed and his plans for once he leaves the hospital such as finding time for meditation and exercise, cutting back on a class with memorization and meeting with his therapist weekly. No SI. Anxiety is rated as 0 (10=most severe) Depression is rated as 0 (10=most severe) Spent more than 20 minutes in the care and coordination of this patient of which greater than 50% was dedicated to counseling and coordination of care. Physical Exam Psychiatric Orientation: alert and oriented x 3 Apperance: appropriately dressed Eye Contact: good eye contact Motor Behavior: steady gait and station and no abnormal motor movements Speech: normal rate/rhythm/volume of speech Affect: euthymic affect Mood: + anxious mood Thought Process: goal directed thought process Thought Content: reality based without delusions Suicidal Thoughts: denies suicidal thoughts Homicidal Thoughts: denies homicidal thoughts Hallucinations: no auditory hallucinations and no visual hallucinations Cognition: recent memory grossly intact, remote memory grossly intact, attention grossly intact and language grossly intact Estimated Intelligence: consistent with education level Insight: good insight Judgement: + fair judgement Vital Signs (Past 24 Hours) Last Vital Signs Temp 36.4 C L 06/18/21 06:00 Pulse 53 L 06/18/21 06:45 Resp 14 06/18/21 06:00 BP 96/59 L 06/18/21 06:45 Results & Data ([facility]) Current Inpatient Medications Current Inpatient Medications: Current Inpatient Medications Acetaminophen (Acetaminophen 325 Mg Tab) 650 mg PO Q4H PRN PRN Reason: Headache or Minor Fever Stop: 07/15/21 15:27 Al Hydrox/Mg Hydrox/Simethicone (Aluminum/Magnesium Susp 30 Ml Udc) 30 ml PO Q4H PRN PRN Reason: GI Upset Stop: 07/15/21 15:27 Bismuth Subsalicylate (Bismuth Subsalicylate Liqd 236 Ml) 15 ml PO PRN PRN PRN Reason: Loose Stool Stop: 07/15/21 15:27 Bupropion HCl (Bupropion Xl 150 Mg Tabcr) 150 mg PO QAM DAVID Stop: 07/17/21 08:59 Last Admin: 06/18/21 08:13 Dose: 150 mg Documented by: Diclofenac Sodium (Diclofenac Sod 1% Gel 100 Gm Tube) 4 gm EXT QID PRN PRN Reason: As Needed for Fever or Pain Stop: 07/15/21 20:59 Hydroxyzine HCl (Hydroxyzine Hcl 25 Mg Tab) 50 mg PO HSZ PRN PRN Reason: Insomnia Stop: 07/15/21 15:27 Hydroxyzine HCl (Hydroxyzine Hcl 25 Mg Tab) 25 mg PO Q4H PRN PRN Reason: Anxiety Stop: 07/15/21 15:27 Magnesium Hydroxide (Magnesium Hydroxide Susp 30 Ml Udc) 30 ml PO DAILY PRN PRN Reason: Constipation Stop: 07/15/21 15:27 Melatonin (Melatonin 3 Mg Tab) 3 mg PO HS PRN PRN Reason: Sleep Stop: 07/15/21 16:44 Sertraline HCl (Sertraline Hcl 50 Mg Tablet) 25 mg PO HS DAVID Stop: 07/16/21 21:59 Last Admin: 06/17/21 21:21 Dose: 25 mg Documented by: Sodium Chloride (Sodium Chloride 0.65% Na Soln 45 Ml ([place])) 1 - 2 sprays NA PRN PRN PRN Reason: Nasal Dryness/Congestion Stop: 07/15/21 15:27 Mental Health & Subst Abuse Tx Psychiatrist Name of Psychiatrist: [facility] Wanda Bella (intake) Psychiatrist's Date of Appointment with Psychiatrist: 06/22/21 Time of Appointment with Psychiatrist: 9:00 AM Psychiatric Appointment Comment: [address] [place] [address] Therapist Name of Therapist: Dr. Timoteo Tse Therapist's Therapy Appointment Comment: Parents will schedule your appointment. Post Discharge Appointments Primary Care Physician Name Of Family Doctor: Lavell Hoyt Provider Appointment Comment: Follow up as needed. Contact Information Discharge Discharge Address: [facility] [address], [place] [id number]
[2021-06-18] MEDS: SERTRALINE HCL 50 MG TABLET PO SCH (20:34)
[2021-06-19] MEDS: buPROPion XL 150 MG TABCR PO SCH (08:53)
--- NOTE | 2021-06-19 09:19 | Discharge Summary ---
Date of Service June 19, 2021 History of Present Illness HPI Per Dr. Ramirez on 06/16/2021: SUNNY EVANS is a 20-year-old man who currently lives in a fraternity house at [facility], has a history of depression and anxiety, and was admitted on 06/15/21 15:28 on a 201 voluntary commitment following a brief medical admission for intentional ingestion of sertraline and alcohol. Chief Complaint "I've had a lot of time to think about what lead to this attempt and what I'd do differently next time". History of Present Illness Sunny presents for admission following suicide attempt via overdose of sertraline and alcohol. He is known to this author from seeing him for psychiatric consultation during his medical admission. Today he re-summarizes the events leading to his attempt and admission. For the last two weeks he experienced worsening fatigue, low energy, decreased concentration, low mood and high stress which he attributes to his coursework. Notes that the transition back to in-person classes and exams has been very stressful and overwhelming as exams as closed books and require more memorization and different learning style which has been difficult to adapt to. He struggled with a big exam on Tuesday and reached out to this therapist to schedule an earlier appointment (for today 06/16) as well as tried to meditate and exercise but he still felt overwhelmed. 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 On Tuesday he experienced SI for the first time (he denies feeling suicidal earlier in the week and this leading him to break up with his girlfriend as collateral information had suggested) and tried to go to sleep but then awoke still feeling overwhelmed and then took sertraline with alcohol in an attempt to . He immediately regretted it, sought help, and since that time states he continues to feel "glad to be alive" and feels he has many things to live for including himself, friends and family. Continues to deny current depressive symptoms or SI though has had a lot of time to sleep. Has been journaling about what lead to the attempt, ways to reduce school work burden and ways to increase time for leisure, exercise and meditation as these have all helped him in the past. Pertinent ROS: negative for hx of wilfred, neg for hx psychosis, neg hx of OCD, hx anxiety which sertraline has worked well for, substance use 2x per week alcohol of 2-3 drinks and recreational marijuana use. Physical exam: Psychiatric: Orientation: alert and oriented x 3 Apperance: appropriately dressed Eye Contact: good eye contact Motor Behavior: steady gait and station and no abnormal motor movements Speech: normal rate/rhythm/volume of speech Affect: euthymic affect Mood: + anxious mood Thought Process: goal directed thought process Thought Content: reality based without delusions Suicidal Thoughts: denies suicidal thoughts Homicidal Thoughts: denies homicidal thoughts Hallucinations: no auditory hallucinations and no visual hallucinations Cognition: recent memory grossly intact, remote memory grossly intact, attention grossly intact and language grossly intact Estimated Intelligence: consistent with education level Insight: good insight Judgement: + fair judgement Vital Signs (Past 24 Hours): Last Vital Signs Temp 36.5 C 06/16/21 06:53 Pulse 70 06/16/21 06:54 Resp 16 06/16/21 06:53 BP 98/64 L 06/16/21 06:54 Exam Statement: A physical exam was performed on the medical floor by Dr. Krause for the purposes of medical clearance. I accept that physical as correct and adequate for the purposes of the inpatient physical exam. Physical Exam Vital Signs (Past 24 Hours) Last Vital Signs Temp 36.6 C 06/19/21 06:45 Pulse 81 06/19/21 06:47 Resp 16 06/19/21 06:45 BP 105/56 L 06/19/21 06:47 See admission H&P and DOD summary. Principal Diagnosis Major Depressive Disorder Psychiatric Data See daily stay summary. In short, patient was engaged with the social/therapeutic milieu of the unit, safety was maintained and the patient was cooperative with care. Medication changes included restarting sertraline and initiating bupropion XL for augmentation for depression and they tolerated this well. A family session was held and safety plan was completed prior to discharge. Day of Discharge Assessment Today the patient voices readiness for discharge. They note improvement in mood and feel "great". They are future-oriented. They deny thoughts of harm to self or others. Thoughts remain organized and they are clinically improved from admission. There is no evidence of psychosis. They improved in the hospital with support and medication adjustments. They agree to take medications as prescribed and keep follow-up appointments. At the time of the discharge they are deemed to be stable and appropriate for outpatient level of care. They are not deemed to be at imminent risk of harm to self or others. They are aware of emergency and crisis services. Knows to call 911 or go to nearest emergency care center if in a crisis which cannot be handled as an outpatient. Transition of Care Transition Of Care Record: was reviewed with the patient Advance Directives Advance Directives Information Provided: Yes Advance Directives: No Mental Health Advance Directive: No Advance Directives on File: No Living Will: No Power of Valve Tester: No Advance Directives Reason:: Declines as Mental Health Visit. Risk Factors Assessment Male: Yes : Yes Do You Have Access To A Gun?: No Health Problems: No Mental Health Diagnoses: Yes Substance Use Disorders: No Previous Attempt: Yes Family History of Suicide: No Previous Psychiatric Hospitalization: No Hopelessness: No Smoker: No Protective Factors Assessment Stable Relationships: Yes Supportive Family: Yes Good Rapport with Provider: Yes Hospital Course (1) MDD (major depressive disorder), recurrent episode: (2) Suicide attempt: 06/18/2021--Tolerating sertraline and Wellbutrin well without any side effects. Discussed coping skills he plans to use moving forward and ways he plans to reduce some of the academic pressures and stress. 06/17/2021--Continue with sertraline 25 mg qd and Wellbutrin 150 mg XL. Spoke with Sunny's mother via phone yesterday who noted observing that sertraline 50mg seemed to take away almost too much anxiety to the point where he wasn't as motivated to do things. Discussed this also with Sunny with plan to keep sertraline at 25mg qd for at least 2 weeks especially since Wellbutrin was added for augmentation and see if this keeps anxiety well controlled but also helps with motivation. 06/16/2021--Restart sertraline 25 mg qhs for LAUREL and MDD, pt consented. Consider addition of Wellbutrin XL 150 mg qAM for MDD (pt consented but would like me to speak with his family as well-called and left voicemail message for his mother to call back, ROIs for all parents signed by pt). Encourage continuing to meditate and consider ways to reduce stresses of coursework. 06/15/2021--The patient was admitted to the [facility] ([facility] inpatient mental health unit) on q15 min checks (behavioral with suicide precautions) for safety. The patient will participate in group, recreational, and milieu therapies and will be offered additional individual and family sessions as clinically appropriate. Mental Health & Subst Abuse Tx Psychiatrist Name of Psychiatrist: [facility] (intake) Psychiatrist's Date of Appointment with Psychiatrist: 06/22/21 Time of Appointment with Psychiatrist: 9:00 AM Psychiatric Appointment Comment: [address] [place] [address] Therapist Name of Therapist: Dr. Timoteo Tse Therapist's Date of Therapist Appointment: 06/23/21 Time of Therapist Appointment: 8:30 AM Therapy Appointment Comment: Via telehealth Deputy City Clerk Name of Deputy City Clerk: [facility] Jackie Hand Phone Number for Deputy City Clerk: [phone] Date of Appointment with Deputy City Clerk: 06/22/21 Time of Appointment with Deputy City Clerk: 2:30 PM Case Management Appointment Comment: Will meet with you via Zoom- [email or web address] Post Discharge Appointments Primary Care Physician Name Of Family Doctor: Alexey Koo [facility] Primary Care Provider Appointment Comment: Follow up as needed. Contact Information Discharge Discharge Address: [address] [place] [id number] Discharge Plan Discharge Items Patient Disposition: Home - Self-Care Reason For Visit: MDD Discharge Diagnosis: Major Depressive Disorder Condition on Discharge: Good Activity: Resume your previous activity Non-emergency contact: Primary Care Provider, Psychiatrist and Therapist Call non-emergency contact if: you have any medication questions and your symptoms worsen Follow-up/Referrals: SELF,REFERRED [Primary Care Provider] - Diet: Regular Addtl Attending Provider Instructions: SPECIAL CARE INSTRUCTIONS: 1. Follow through with your scheduled aftercare appointments. If unable to keep an appointment, please call to reschedule. 2. Take your medication only as prescribed. Medication should not be changed or stopped without the approval of your doctor. In the event of worsening symptoms or concerns about side effects, contact your doctor immediately. 3. Utilize new healthy coping skills, anger management skills, and stress management skills learned during your hospitalization. Journal feelings and process them with a support person. Identify stressors or situations that may result in relapse, deterioration or inappropriate behaviors and develop a plan to deal with those issues. 4. If your coping skills are ineffective and you are in crisis, contact your outpatient providers for direction. If unable to reach your providers, please call the [facility] CRISIS LINE AT , go to the [facility] walk-in center at [address], [address], [place], or go to the closest Emergency Room. 5. Avoid alcohol and un-prescribed drugs. 6. You have been provided with the Mental Health Advance Directives Pamphlet for your review. 7. Your condition is stable for discharge to outpatient level of care, but recovery is an ongoing process. Ifthoughts to harm yourself or others return, follow the safety plan developed during your stay. Planning for a safe return home includes securing weapons. Our treatment team recommends weaponsbe removed from the home until your outpatient provider reassesses your progress. In rare cases where the items themselvescannot be removed, guns and ammunitionshould be secured separatelyand keys stored by a reliable personoutside of the home. If you were admitted on an involuntary commitment, the police or other legal authorities may be involved in this process. AFTERCARE APPOINTMENTS: * Please call your insurance company prior to your scheduled appointment to confirm your aftercare providers are covered. Take your insurance information to your appointments. WHO TO CALL AND WHEN: Medical Emergencies: For questions or emergencies related to your hospital stay, please contact the Inpatient Behavioral Health Unit at [phone]. A neuropsychiatric aide is on-call 04/04 for the Behavioral Health Unit for emergencies At any time you feel your situation is an emergency, you may also call 911 immediately. Pending Studies at Discharge: No Stand-Alone Forms: My [facility] Medications and DC Order Prescriptions: New sertraline 50 mg Tablet 25 mg PO HS 30 Days Qty: 15 RF: 0 bupropion HCl 150 mg Tablet Extended Release 24 Hr 150 mg PO QAM 30 Days Qty: 30 RF: 0 Discharge Orders: Discharge Order (Routine); Ordered 06/19/21 Ordered By: Kirsten Khoury/Other Patient Handouts: Depression: Tips to Help Yourself Admission Data Admit Date/Time: 06/15/21 15:28 Attending Provider: Kirsten Ramirez Admit Provider: Kirsten Ramirez Primary Care Provider: SELF,REFERRED Other Interventions: PSY Interdisciplinary Discharge Planning Last Done: 06/18/21 15:59 Coding Level of Care Code 13462 D/C day mgmt > 30 min Diagnoses MDD (major depressive disorder), recurrent episode F33.9 Suicide attempt T14.91XA Time Spent (min) 40
== END 2021-06-19 09:48 | disposition home or self-care (01) | DRG 885 ==
LOC: 3S 15:28